=== PATIENT | male | born 1965 | race Two or more races ===

== ENCOUNTER 2024-02-23 10:47 | Emergency (ER) | payer BC ==
[~2024-02-23] VITALS: Ht 170.2 cm; Wt 81.6 kg
[2024-02-23] MEDS ORDERED: OMEPRAZOLE MAGN20 MG PO (11:52)
[2024-02-23] MEDS ORDERED: NIFEDIPINE 20 MG CAPSULE PO STA (12:42)
[2024-02-23] MEDS ORDERED: CLONIDINE HCL 0.1 MG TABLET PO STA (13:04)
[2024-02-23 13:09] LABS: HEMATOCRIT 41.1 % (39.0-48.0); MEAN CELL VOLUME 87.5 fL (80.0-100.00); MEAN CORPUSCULAR HEMOGLOBIN 29.8 pg (27.00-32.0); PLATELET COUNT 271 K/uL (150-450); RED CELL DISTRIBUTION WIDTH 13.6 % (11.5-14.5)
[2024-02-23 13:43] LABS: CALCIUM 8.8 mg/dL (8.5-10.1); CREATININE SERUM 0.84 mg/dL (0.70-1.30); GFR 94.52; POTASSIUM 3.94 mEq/L (3.5-5.1)
[2024-02-23] MEDS ORDERED: COZAAR25 MG PO (16:46)
== END 2024-02-23 17:34 | disposition home or self-care (01) ==
LOC: ER 10:49
PROVIDERS: General Practice
DX: R03.0 Elevated blood-pressure reading, without diagnosis of hypertension (principal)